=== PATIENT | male | born 1975 | race Hispanic/Latino ===

== ENCOUNTER 2018-05-23 21:54 | Emergency (ER) | payer SELFPAY ==
[2018-05-23] MEDS ORDERED: NA CHLORIDE 0.9% 1,000 ML ONE (22:22)
[2018-05-23 22:37] LABS: Absolute Lymphocytes (CBC) 4.6 K/uL (0.7-4.9); Absolute Monocytes 0.7 K/uL (0.1-1.3); Absolute Neutrophil 7.2 K/uL (1.8-8.0); Basophils % 0.7 % (0-1.3); Eosinophils % 1.9 % (0-4.4); Hematocrit 45.9 % (39.6-49.0); Lymphocytes % 35.8 % (15.3-44.8); MCH 28.9 pg (27.0-35.0); MCV 84.2 fL (80-100); MPV 10.3 fL (7.6-11.3); Monocytes % 5.3 % (3.3-12.3); RBC Red Blood Cell Count 5.44 M/uL (4.33-5.43)
[2018-05-23 22:55] LABS: BUN Blood Urea Nitrogen 11 mg/dL (7-18); Bicarbonate 29 mmol/L (21-32); Creatine Phosphokinase 76 U/L (39-308); Glucose Level 398 mg/dL (74-106); Potassium 3.9 mmol/L (3.5-5.1); Sodium Level 134 mmol/L (136-145); Troponin (Emerg Dept Use Only) < 0.02 ng/mL (0.0-0.045)
[2018-05-24] MEDS ORDERED: NA CHLORIDE 0.9% 1,000 ML ONE (00:04)
[2018-05-24 01:16] LABS: Urine Blood NEGATIVE (NEG); Urine Glucose 2+ (NEG); Urine Protein NEGATIVE (NEG); Urine pH 5.5 (5.0-7.0)
[2018-05-24 01:24] LABS: Urine Bacteria <20 /HPF (NONE SEEN); Urine Culture Reflex Order NOT NEEDED; Urine RBC NONE SEEN /HPF (NONE SEEN); Urine Yeast PRESENT (NONE SEEN)
--- NOTE | 2018-05-24 01:25 | EDPHYS ---
Physician Documentation [facility] Name: Clayton Guzman Age: 42 yrs Sex: Male : 1975 Arrival Date: 05/23/2018 Time: 21:56 Bed 19 Private MD: ED Physician Suresh Roque HPI: 05/24 01:04 This 42 yrs old Male presents to ER via Ambulatory with complaints of Blurred rn Vision, Dizziness, Numbness Of Arm. 01:04 The patient presents with dizziness, feeling faint, generalized weakness. Onset: The rn symptoms/episode began/occurred few months. Modifying factors: The symptoms are alleviated by nothing, the symptoms are aggravated by nothing. Severity of symptoms: At their worst the symptoms were mild in the emergency department the symptoms have improved. The patient has experienced similar episodes in the past. Reports several months of intermittent fatigue, dizziness, paresthesias of left arm. Reports usually "able to shake them off", goes away after a while, but today hit him harder. Works in kitchen, always hot, doesn't drink water, drinks a lot of soda. No chest pain/vomiting/diarrhea/abd pain. Reports weakness all over. States symptoms got worse around 5PM.. Historical: - Allergies: 05/23 22:09 No Known Allergies; bb - Home Meds: 22:09 None [Active]; bb - PMHx: 22:09 None; bb - PSHx: 22:09 None; bb - Immunization history:: Adult Immunizations unknown. - Social history:: Smoking status: Patient/guardian denies using tobacco, Patient uses alcohol, but reports only rare drinking. Patient/guardian denies using street drugs. - Ebola Screening: : No symptoms or risks identified at this time. - Family history:: not pertinent. - Hospitalizations: : No recent hospitalization is reported. ROS: 05/24 01:04 Constitutional: Negative for fever, chills, and weight loss, Eyes: Negative for injury, rn pain, redness, and discharge, Neck: Negative for injury, pain, and swelling, Cardiovascular: Negative for chest pain, palpitations, and edema, Respiratory: Negative for shortness of breath, cough, wheezing, and pleuritic chest pain, Abdomen/GI: Negative for abdominal pain, nausea, vomiting, diarrhea, and constipation, MS/Extremity: Negative for injury and deformity, Skin: Negative for injury, rash, and discoloration, Neuro: Negative for seizure Exam: 01:04 Constitutional: This is a well developed, well nourished patient who is awake, slow to rn respond to answers, appears drowsy but anxious Head/Face: Normocephalic, atraumatic. Eyes: Pupils equal round and reactive to light, extra-ocular motions intact. Lids and lashes normal. Conjunctiva and sclera are non-icteric and not injected. Cornea within normal limits. Periorbital areas with no swelling, redness, or edema. ENT: dry MM Neck: Trachea midline, no thyromegaly or masses palpated, and no cervical lymphadenopathy. Supple, full range of motion without nuchal rigidity, or vertebral point tenderness. No Meningismus. Cardiovascular: Regular rate and rhythm with a normal S1 and S2. No gallops, murmurs, or rubs. Normal PMI, no JVD. No pulse deficits. Respiratory: Lungs have equal breath sounds bilaterally, clear to auscultation and percussion. No rales, rhonchi or wheezes noted. No increased work of breathing, no retractions or nasal flaring. Abdomen/GI: Soft, non-tender, with normal bowel sounds. No distension or tympany. No guarding or rebound. No evidence of tenderness throughout. MS/ Extremity: Pulses equal, no cyanosis. Neurovascular intact. Full, normal range of motion. Equal circumference. Neuro: Awake and alert, GCS 15, oriented to person, place, time, and situation. Cranial nerves II-XII grossly intact. Motor strength 5/5 in all extremities, no drift. Mild decreased sensation to soft touch LUE but only distal ot elbow. Cerebellar exam normal. Vital Signs: 05/23 22:09 BP 157 / 97; Pulse 89; Resp 24 S; Temp 98.1(O); Pulse Ox 97% on R/A; Weight 92.99 kg bb (R); Height 5 ft. 2 in. (157.48 cm) (R); Pain 0/10; 23:22 BP 131 / 94; Pulse 86; Resp 18; Temp 98.1; Pulse Ox 97% on R/A; Pain 0/10; ak1 05/24 00:37 BP 120 / 81; Pulse 83; Resp 16; Pulse Ox 97% on R/A; Pain 0/10; ak1 01:27 BP 137 / 86; Pulse 83; Resp 16; Pulse Ox 97% on R/A; Pain 0/10; ak1 05/23 22:09 Body Mass Index 37.49 (92.99 kg, 157.48 cm) bb MDM: 05/23 22:03 Patient medically screened. rn 22:22 ED course: Onset of symptoms 1700, + left arm paresthesias and subjective weakness, no rn drift, NIH 1. Signs and symptoms of hyperglycemia/diabetes, has had multiple of these episodes, no drift, will get CT of head, but given unclear etiology and onset now > 5 hours, no indication for TPA. . 05/24 00:23 ED course: Pt improved with only fluids, still waiting on urine sample. CT head neg. . rn 01:20 Differential diagnosis: CVA, generalized weakness, hypovolemia, idiopathic dizziness, rn near-syncope, TIA. Data reviewed: vital signs, nurses notes, lab test result(s), EKG, radiologic studies, CT scan, and as a result, I will discharge patient. Counseling: I had a detailed discussion with the patient and/or guardian regarding: the historical points, exam findings, and any diagnostic results supporting the discharge/admit diagnosis, lab results, radiology results, the need for outpatient follow up, to return to the emergency department if symptoms worsen or persist or if there are any questions or concerns that arise at home. Response to treatment: the patient's condition has returned to base line, the patient is now symptom free, patient is well hydrated. and as a result, I will discharge patient. Special discussion: I discussed with the patient/guardian in detail that at this point there is no indication for admission to the hospital. It is understood, however, that if the symptoms persist or worsen the patient needs to return immediately for re-evaluation. Based on the history and exam findings, there is no indication for further emergent testing or inpatient evaluation. I discussed with the patient/guardian the need to see the primary care provider for further evaluation of the symptoms. ED course: Pt with hyperglycemia, dehydration, improved symptoms once fluids started. Recommend better diet and oral hydration, and pcp f/u for glucose management and true diabetic evaluation/diagnosis. Return precautions given and understood. . 05/23 22:22 Order name: CBC with Diff; Complete Time: 23:51 rn 05/23 22:22 Order name: Basic Metabolic Panel; Complete Time: 23:51 rn 05/23 22:22 Order name: Urine Microscopic Only; Complete Time: 01:25 rn 05/23 22:22 Order name: Osmolality, Serum; Complete Time: 23:51 rn 05/23 22:22 Order name: Ketone, Serum; Complete Time: 23:51 rn 05/23 22:22 Order name: Troponin (emerg Dept Use Only); Complete Time: 23:51 rn 05/23 22:20 Order name: CT Head Brain wo Cont rn 05/23 22:22 Order name: Hemoglobin A1c rn 05/23 22:22 Order name: CK; Complete Time: 23:51 rn 05/24 00:06 Order name: Urine Drug Screen ak1 05/24 00:57 Order name: Urine Dipstick--Ancillary (enter results); Complete Time: 01:20 mw2 05/23 22:22 Order name: IV Start; Complete Time: 22:23 rn 05/23 22:22 Order name: Urine Dipstick-Ancillary (obtain specimen); Complete Time: 00:56 rn 05/23 22:22 Order name: EKG; Complete Time: 22:23 rn 05/23 22:22 Order name: EKG - Nurse/Tech; Complete Time: 22:45 rn Administered Medications: 05/23 22:20 Drug: NS 0.9% 1000 ml Route: IV; Rate: 1 bolus; Site: right antecubital; ak1 23:21 Follow up: IV Status: Completed infusion ak1 05/24 00:07 Follow up: IV Status: Completed infusion ak1 05/23 22:22 CANCELLED (Duplicate Order): NS 0.9% 1000 ml IV at 1000 ml once ak1 05/24 00:07 Drug: NS 0.9% 1000 ml Route: IV; Rate: 1 bolus; Site: right antecubital; ak1 01:02 Follow up: IV Status: Completed infusion ak1 01:04 Follow up: IV Status: Completed infusion ak1 Point of Care Testing: Blood Glucose: 05/23 22:11 Blood Glucose: 344 mg/dL; ak1 Ranges: Critical Glucose Levels:Adult <50 mg/dl or >400 mg/dl <40 mg/dl or >180 mg/dl Disposition: 05/24/18 01:24 Discharged to Home. Impression: Paresthesia of skin, Hyperglycemia, unspecified, Dehydration. - Condition is Stable. - Discharge Instructions: Dehydration, Adult, Hyperglycemia, Paresthesia. - Medication Reconciliation Form, Thank You Letter, Antibiotic Education, Prescription Opioid Use form. - Follow up: Private Physician; When: As needed; Reason: Recheck today's complaints, Re-evaluation by your physician. - Problem is new. - Symptoms have improved. Signatures: Dispatcher [employer] EDMary Pereyra RN RN bb Nieto, Roman, MD MD rn Krenek, Amber, RN RN ak1 Corrections: (The following items were deleted from the chart) 22:22 22:22 NS 0.9% 1000 ml IV at 1000 ml once ordered. rn ak1 05/24 01:34 01:24 05/24/2018 01:24 Discharged to Home. Impression: Paresthesia of skin; ak1 Hyperglycemia, unspecified; Dehydration. Condition is Stable. Forms are Medication Reconciliation Form, Thank You Letter, Antibiotic Education, Prescription Opioid Use. Follow up: Private Physician; When: As needed; Reason: Recheck today's complaints, Re-evaluation by your physician. Problem is new. Symptoms have improved. rn
--- NOTE | 2018-05-24 01:25 | ER ---
Nurse's Notes [facility] Name: Clayton Guzman Age: 42 yrs Sex: Male : 1975 Arrival Date: 05/23/2018 Time: 21:56 Bed 19 Private MD: Diagnosis: Paresthesia of skin;Hyperglycemia, unspecified;Dehydration Presentation: 05/23 22:07 Presenting complaint: Patient states: he was lying down today and woke up to urinate bb when he noticed a "pins and needle" feeling in his left arm with some left arm pain he was feeling dizzy and his vision was blurred those symptoms have been intermittent throughout the day but they are still there pt states he has been having these symptoms the last couple of months but he usually will rest and "shake them off". Transition of care: patient was not received from another setting of care. Onset of symptoms is unknown. Risk Assessment: Do you want to hurt yourself or someone else? Patient reports no desire to harm self or others. Initial Sepsis Screen: Does the patient meet any 2 criteria? No. Patient's initial sepsis screen is negative. Does the patient have a suspected source of infection? No. Patient's initial sepsis screen is negative. Care prior to arrival: None. 22:07 Method Of Arrival: Ambulatory bb 22:07 Acuity: KAREN 3 bb Triage Assessment: 22:12 General: Appears in no apparent distress. Behavior is cooperative. Pain: Complains of ak1 pain in left hand, left arm and left leg. EENT: No signs and/or symptoms were reported regarding the EENT system. Neuro: Level of Consciousness is awake, alert, obeys commands, Oriented to person, place, time, situation, Label Maker are equal bilaterally Moves all extremities. Gait is steady, Speech is normal, Facial symmetry appears normal. Cardiovascular: No deficits noted. Respiratory: No deficits noted. GI: No signs and/or symptoms were reported involving the gastrointestinal system. : No signs and/or symptoms were reported regarding the genitourinary system. Derm: No signs and/or symptoms reported regarding the dermatologic system. Musculoskeletal: No signs and/or symptoms reported regarding the musculoskeletal system. Historical: - Allergies: 22:09 No Known Allergies; bb - Home Meds: 22: None [Active]; bb - PMHx: 22: None; bb - PSHx: 22:09 None; bb - Immunization history:: Adult Immunizations unknown. - Social history:: Smoking status: Patient/guardian denies using tobacco, Patient uses alcohol, but reports only rare drinking. Patient/guardian denies using street drugs. - Ebola Screening: : No symptoms or risks identified at this time. - Family history:: not pertinent. - Hospitalizations: : No recent hospitalization is reported. Screenin:12 Abuse screen: Denies threats or abuse. Denies injuries from another. Nutritional ak1 screening: No deficits noted. Tuberculosis screening: No symptoms or risk factors identified. Fall Risk None identified. Assessment: 22:13 Reassessment: Patient appears in no apparent distress at this time. No changes from ak1 previously documented assessment. see triage assessment. General: Appears in no apparent distress. 23:22 Reassessment: Patient appears in no apparent distress at this time. No changes from ak1 previously documented assessment. Patient is alert, oriented x 3, equal unlabored respirations, skin warm/dry/pink. pt informed of need for urine sample. 05/24 00:34 Reassessment: pt laughing and talking with family at bedside. pt appears more alert and ak1 cooperative at this time s/p 2 liter NS. pt continues to be informed of need for urine sample. will continue to monitor. 01:00 Reassessment: Patient appears in no apparent distress at this time. pt texting family ak1 and waiting for lab results. pt denies pain to left arm at this time. Vital Signs: 05/23 22:09 BP 157 / 97; Pulse 89; Resp 24 S; Temp 98.1(O); Pulse Ox 97% on R/A; Weight 92.99 kg bb (R); Height 5 ft. 2 in. (157.48 cm) (R); Pain 0/10; 23:22 BP 131 / 94; Pulse 86; Resp 18; Temp 98.1; Pulse Ox 97% on R/A; Pain 0/10; ak1 05/24 00:37 BP 120 / 81; Pulse 83; Resp 16; Pulse Ox 97% on R/A; Pain 0/10; ak1 01:27 BP 137 / 86; Pulse 83; Resp 16; Pulse Ox 97% on R/A; Pain 0/10; ak1 05/23 22:09 Body Mass Index 37.49 (92.99 kg, 157.48 cm) bb ED Course: 05/23 21:56 Patient arrived in ED. do 21:59 Jossie Sheth, RN is Primary Nurse. ak1 22:03 Suresh Roque MD is Attending Physician. rn 22:09 Triage completed. bb 22:09 Arm band placed on Patient placed in an exam room, on a stretcher, on pulse oximetry. bb Family accompanied patient. 22:11 Inserted saline lock: 20 gauge in right antecubital area, using aseptic technique. ak1 Blood collected. 22:12 Patient has correct armband on for positive identification. Placed in gown. Bed in low ak1 position. Call light in reach. Side rails up X2. Adult w/ patient. potline monitor on. Pulse ox on. NIBP on. 22:[address] nm 22:39 CT Head Brain wo Cont In Process Unspecified. EDMS 22:39 CT completed. Patient moved back from CT. cw1 05/24 01:30 No provider procedures requiring assistance completed. IV discontinued, intact, ak1 bleeding controlled, No redness/swelling at site. Pressure dressing applied. Administered Medications: 05/23 22:20 Drug: NS 0.9% 1000 ml Route: IV; Rate: 1 bolus; Site: right antecubital; ak1 23:21 Follow up: IV Status: Completed infusion ak1 05/24 00:07 Follow up: IV Status: Completed infusion ak1 05/23 22:22 CANCELLED (Duplicate Order): NS 0.9% 1000 ml IV at 1000 ml once ak1 05/24 00:07 Drug: NS 0.9% 1000 ml Route: IV; Rate: 1 bolus; Site: right antecubital; ak1 01:02 Follow up: IV Status: Completed infusion ak1 01:04 Follow up: IV Status: Completed infusion ak1 Point of Care Testing: Blood Glucose: 05/23 22:11 Blood Glucose: 344 mg/dL; ak1 Ranges: Outcome: 05/24 01:24 Discharge ordered by . rn 01:30 Discharged to home ambulatory, with family. ak1 01:30 Condition: good 01:30 Discharge instructions given to patient, family, Instructed on discharge instructions, follow up and referral plans. Demonstrated understanding of instructions, follow-up care. 01:34 Patient left the ED. ak1 Signatures: Dispatcher [employer] Mary Burch RN RN Suresh Baltazar MD MD rn Woodley, Cher [email or web address] Jossie Sheth RN RN ak1 Shyla Murdock, Dorian mosher
[2018-05-24 01:26] LABS: Barbiturates NEGATIVE (NEGATIVE); Benzodiazepines NEGATIVE (NEGATIVE); Cocaine NEGATIVE (NEGATIVE); METHAMPHETAM NEGATIVE (NEGATIVE); Methadone NEGATIVE (NEGATIVE); Opiates NEGATIVE (NEGATIVE); Phencyclidine NEGATIVE (NEGATIVE); THC Cannibis NEGATIVE (NEGATIVE)
--- NOTE | 2018-05-24 09:14 | RAD REPORT ---
EXAM DESCRIPTION: CT - Head Brain Wo Cont - 05/24/2018 3:57 am CLINICAL HISTORY: Headache, left arm paresthesia A preliminary report was provided at the time of the study and reviewed prior to final report. COMPARISON: None. TECHNIQUE: Axial 5 mm thick images of the head were obtained without IV contrast. All CT scans are performed using dose optimization technique as appropriate and may include automated exposure control or mA/KV adjustment according to patient size. FINDINGS: No intracranial hemorrhage, mass, edema or shift of mid-line structures. No acute infarcti on changes seen. No abnormal extra-axial fluid collections. Ventricles are normal. Mastoid air cells and visualized portions of the paranasal sinuses are clear of significant finding. Small polyps or retention cysts in each maxillary sinus. No acute bony findings. IMPRESSION: Negative non-contrast CT head examination for acute or significant finding.
--- NOTE | 2018-05-24 17:34 | EKG ---
Test Date: 2018-05-23 Test Time: 22:42:07 Sales Leader: LAURA MEASUREMENT RESULTS: Intervals: Rate: 90 CT: 148 QRSD: 94 QT: 360 QTc: 440 [place]: P: 60 CT: 148 QRS: 25 T: 30 INTERPRETIVE STATEMENTS: Sinus rhythm with occasional premature ventricular complexes Otherwise normal ECG Compared to ECG 09/20/2005 18:39:00 No significant changes Electronically Signed On 05-24-18 17:33:25 CDT by Kit Kennedy
== END 2018-05-24 01:34 | disposition home or self-care (01) ==
LOC: EDBD 21:54 → ER 21:54
DX: E86.0 Dehydration (principal); R73.9 Hyperglycemia, unspecified
CPT/HCPCS: 36415; 70450; 80048; 80307; 81003; 81015; 82010; 82550; 82962; 83930; 84484; 85025; 93005; 96360; 96361; 99285; J7030

== ENCOUNTER 2018-11-02 09:43 | Observation (INO) | payer SELFPAY ==
[2018-11-02 10:17] LABS: Absolute Lymphocytes (CBC) 3.5 K/uL (0.7-4.9); Absolute Monocytes 0.5 K/uL (0.1-1.3); Absolute Neutrophil 6.2 K/uL (1.8-8.0); Basophils % 0.5 % (0-1.3); Eosinophils % 1.2 % (0-4.4); Lymphocytes % 33.8 % (15.3-44.8); MPV 9.4 fL (7.6-11.3); Monocytes % 4.6 % (3.3-12.3); RBC Red Blood Cell Count 5.84 M/uL (4.33-5.43)
[2018-11-02 10:21] LABS: Protime INR 1.05
--- NOTE | 2018-11-02 10:21 | RAD REPORT ---
EXAM DESCRIPTION: CT - Ct Stroke Brain Wo Cont - 11/02/2018 10:05 am CLINICAL HISTORY: Alteration of awareness. Unresponsive COMPARISON: May 2018 TECHNIQUE: Computed axial tomography of the head was obtained. IV contrast was not requested. All CT scans are performed using dose optimization technique as appropriate and may include automated exposure control or mA/KV adjustment according to patient size. FINDINGS: An intracranial bleed is not seen . The ventricles are normal in caliber. No extra-axial fluid collection is noted. Partial opacification of maxillary and ethmoid sinuses consistent with sinusitis IMPRESSION: No acute intracranial abnormality is seen. If patient's symptoms persist MRI of the bra in would be recommended. Lashell Villegas of the emergency room notified 9:57 a.m. November 12, 2018
--- NOTE | 2018-11-02 10:23 | RAD REPORT ---
EXAM DESCRIPTION: RAD - Chest Single View - 11/02/2018 10:11 am CLINICAL HISTORY: COUGH Chest pain. COMPARISON: No comparisons FINDINGS: Portable technique limits examination quality. The lungs are underinflated resulting in vascular crowding. The heart is normal in size. No displaced fractures. IMPRESSION: Underinflated lungs.
[2018-11-02] MEDS ORDERED: THIAMINE 200 MG/2 ML INJ ONE (10:26)
[2018-11-02] MEDS ORDERED: NA CHLORIDE 0.9% 1,000 ML ONE (10:26)
[2018-11-02] MEDS ORDERED: FOLIC ACID 5 MG/ML VIAL ONE (10:27)
[2018-11-02 10:33] LABS: Blood Gas Oxyhemoglobin 94.8 % (94-97); Blood O2 Saturation 96.6 % (92-98.5)
[2018-11-02 10:34] LABS: ALT/SGPT 37 U/L (12-78); AST/SGOT 17 U/L (15-37); Albumin 4.1 g/dL (3.4-5.0); Alkaline Phosphatase 79 U/L (45-117); BUN Blood Urea Nitrogen 12 mg/dL (7-18); Bicarbonate 29 mmol/L (21-32); Bilirubin Direct 0.1 mg/dL (0-0.2); Bilirubin Total 0.5 mg/dL (0.2-1.0); Glucose Level 160 mg/dL (74-106); Lipase 116 U/L (73-393); Magnesium 2.2 mg/dL (1.8-2.4); NT PRO-BNP 6 pg/mL (<125); Potassium 3.9 mmol/L (3.5-5.1); Protein, Total 8.5 g/dL (6.4-8.2); Sodium Level 138 mmol/L (136-145); Troponin (Emerg Dept Use Only) < 0.02 ng/mL (0.0-0.045)
--- NOTE | 2018-11-02 11:15 | EDPHYS ---
Physician Documentation [facility] Name: Clayton Guzman Age: 42 yrs Sex: Male : 1975 Arrival Date: 11/02/2018 Time: 09:50 Bed 7 Private MD: ED Physician Vasyl Thomson HPI: 11/02 10:13 This 42 yrs old Male presents to ER via Wheelchair with complaints of timothy Unresponsive. 10:13 The patient presents with confusion, decreased mental status, decreased responsiveness, timothy trouble concentrating. Onset: The symptoms/episode began/occurred just prior to arrival. Possible causes: CVA or TIA, drug use, alcohol, unknown. Associated signs and symptoms: The patient has no apparent associated signs or symptoms. Current symptoms: In the emergency department the patient's symptoms are unchanged from the initial presentation. Patient's baseline: Neuro: alert and fully oriented. Historical: - Allergies: 09:58 No Known Allergies; sv - Immunization history:: Adult Immunizations unknown. - Family history:: not pertinent. - Social history:: Smoking status: unknown. - Ebola Screening: : No symptoms or risks identified at this time. ROS: 10:13 Constitutional: Negative for fever, chills, and weight loss, Eyes: Negative for injury, timothy pain, redness, and discharge, ENT: Negative for injury, pain, and discharge, Neck: Negative for injury, pain, and swelling, Cardiovascular: Negative for chest pain, palpitations, and edema, Respiratory: Negative for shortness of breath, cough, wheezing, and pleuritic chest pain, Abdomen/GI: Negative for abdominal pain, nausea, vomiting, diarrhea, and constipation, Back: Negative for injury and pain, : Negative for injury, bleeding, discharge, and swelling, MS/Extremity: Negative for injury and deformity, Skin: Negative for injury, rash, and discoloration, Psych: Negative for depression, anxiety, suicide ideation, homicidal ideation, and hallucinations, Allergy/Immunology: Negative for hives, rash, and allergies, Endocrine: Negative for neck swelling, polydipsia, polyuria, polyphagia, and marked weight changes, Hematologic/Lymphatic: Negative for swollen nodes, abnormal bleeding, and unusual bruising. 10:13 Neuro: Positive for altered mental status, weakness. Exam: 10:13 Constitutional: This is a well developed, well nourished patient who is awake, alert, timothy and in no acute distress. Head/Face: Normocephalic, atraumatic. Eyes: Pupils equal round and reactive to light, extra-ocular motions intact. Lids and lashes normal. Conjunctiva and sclera are non-icteric and not injected. Cornea within normal limits. Periorbital areas with no swelling, redness, or edema. ENT: Nares patent. No nasal discharge, no septal abnormalities noted. Tympanic membranes are normal and external auditory canals are clear. Oropharynx with no redness, swelling, or masses, exudates, or evidence of obstruction, uvula midline. Mucous membranes moist. Neck: Trachea midline, no thyromegaly or masses palpated, and no cervical lymphadenopathy. Supple, full range of motion without nuchal rigidity, or vertebral point tenderness. No Meningismus. Chest/axilla: Normal chest wall appearance and motion. Nontender with no deformity. No lesions are appreciated. Cardiovascular: Regular rate and rhythm with a normal S1 and S2. No gallops, murmurs, or rubs. Normal PMI, no JVD. No pulse deficits. Respiratory: Lungs have equal breath sounds bilaterally, clear to auscultation and percussion. No rales, rhonchi or wheezes noted. No increased work of breathing, no retractions or nasal flaring. Abdomen/GI: Soft, non-tender, with normal bowel sounds. No distension or tympany. No guarding or rebound. No evidence of tenderness throughout. Back: No spinal tenderness. No costovertebral tenderness. Full range of motion. Male : Normal genitalia with no discharge or lesions. Skin: Warm, dry with normal turgor. Normal color with no rashes, no lesions, and no evidence of cellulitis. MS/ Extremity: Pulses equal, no cyanosis. Neurovascular intact. Full, normal range of motion. Psych: Awake, alert, with orientation to person, place and time. Behavior, mood, and affect are within normal limits. 10:13 Neuro: Orientation: unable to test, Mentation: slow to respond, confused, Memory: unable to test, Cranial nerves: no acute changes, Cerebellar function: is grossly normal, is grossly normal based on the patient's age, Motor: is normal, Sensation: is normal, no obvious gross deficits, Gait: not tested. Deep tendon reflexes are 2+ (normal) in the bilateral brachioradialis, bicep, tricep and patellar and Achilles tendons, Babinski testing is normal, seizure activity. 10:49 Neck: ROM/movement: is normal, no acute changes, Meningeal signs: are not present, timothy Kernig's sign is negative, Brudzinski's sign is negative. 11:17 Musculoskeletal/extremity: DVT Exam: No signs of deep vein thrombosis. no pain, no timothy swelling, no tenderness, negative Homans' sign noted on exam, no appreciated bluish discoloration, no erythema, no increased warmth. Vital Signs: 09:51 BP 149 / 102; Pulse 82; Resp 26; Pulse Ox 100% on R/A; sg 09:55 Temp 96.0(TE); ss 10:30 BP 141 / 90; Pulse 73; Resp 16; Pulse Ox 90% on R/A; hb 11:30 BP 135 / 72; Pulse 78; Resp 15; Pulse Ox 100% on R/A; hb 12:30 BP 128 / 89; Pulse 73; Resp 19; Pulse Ox 98% on R/A; hb 13:30 BP 111 / 72; Pulse 67; Resp 15; Pulse Ox 99% on R/A; hb 14:30 BP 118 / 81; Pulse 75; Resp 15; Pulse Ox 100% on R/A; hb 15:30 BP 128 / 85; Pulse 72; Resp 21; Pulse Ox 98% on R/A; hb 16:30 BP 118 / 83; Pulse 72; Resp 16; Temp 98.1; Pulse Ox 100% on R/A; hb MDM: 09:54 Patient medically screened. [facility] 10:17 Data reviewed: vital signs, nurses notes, lab test result(s), EKG, radiologic studies, [facility] CT scan, plain films. 11/02 09:58 Order name: Basic Metabolic Panel; Complete Time: 11:11 [facility] 11/02 09:58 Order name: CBC with Diff; Complete Time: 11:11 [facility] 11/02 09:58 Order name: LFT's; Complete Time: 11:11 [facility] 11/02 09:58 Order name: Magnesium; Complete Time: 11:11 [facility] 11/02 09:58 Order name: NT PRO-BNP; Complete Time: 11:11 [facility] 11/02 09:58 Order name: PT-INR; Complete Time: 11:11 [facility] 11/02 09:58 Order name: Troponin (emerg Dept Use Only); Complete Time: 11:11 [facility] 11/02 09:58 Order name: Acetaminophen; Complete Time: 11:11 [facility] 11/02 09:58 Order name: ETOH Level; Complete Time: 11:11 [facility] 11/02 09:58 Order name: Ptt, Activated; Complete Time: 11:11 [facility] 11/02 09:58 Order name: Salicylate; Complete Time: 11:11 [facility] 11/02 09:58 Order name: Urine Drug Screen [facility] 11/02 09:58 Order name: Lipase; Complete Time: 11:11 [facility] 11/02 09:59 Order name: ABG; Complete Time: 11:11 [facility] 11/02 09:58 Order name: XRAY Chest (1 view); Complete Time: 11:11 [facility] 11/02 09:58 Order name: CT Stroke Brain w/o Contrast; Complete Time: 11:11 [facility] 11/02 10:12 Order name: Glucose, Ancillary Testing; Complete Time: 10:19 [facility] 11/02 10:13 Order name: Glucose, Ancillary Testing [facility] 11/02 10:19 Order name: Blood Culture Adult (2) [facility] 11/02 10:19 Order name: Procalcitonin; Complete Time: 11:47 [facility] 11/02 10:19 Order name: Lactate; Complete Time: 11:11 [facility] 11/02 10:49 Order name: Flu; Complete Time: 11:17 [facility] 11/02 11:37 Order name: Urine Dipstick--Ancillary (enter results) em1 11/02 18:09 Order name: Creatine Phosphokinase [facility] 11/02 18:09 Order name: CKMB Creatine Kinase MB [facility] 11/02 18:09 Order name: Troponin I [facility] 11/02 18:09 Order name: T4 Free [facility] 11/02 18:09 Order name: Thyroid Stimulating Hormone [facility] 11/02 19:00 Order name: MRI [facility] 11/02 19:02 Order name: MRI [facility] 11/02 09:58 Order name: EKG; Complete Time: 10:00 [facility] 11/02 09:58 Order name: Cardiac monitoring; Complete Time: 10:24 [facility] 11/02 09:58 Order name: EKG - Nurse/Tech; Complete Time: 10:24 [facility] 11/02 09:58 Order name: IV Saline Lock; Complete Time: 10:24 [facility] 11/02 09:58 Order name: Labs collected and sent; Complete Time: 10:24 [facility] 11/02 09:58 Order name: O2 Per Protocol; Complete Time: 10:47 [facility] 11/02 09:58 Order name: O2 Sat Monitoring; Complete Time: 10:47 [facility] 11/02 09:58 Order name: Urine Dipstick-Ancillary (obtain specimen); Complete Time: 11:35 [facility] 11/02 09:59 Order name: Blood Glucose Level; Complete Time: 10:10 [facility] 11/02 13:54 Order name: Diet Ada 1800 Bowen; Complete Time: 13:54 ss 11/02 19:08 Order name: MRI EDMS 11/02 19:08 Order name: US EDMS Administered Medications: 10:23 Drug: Thiamine 100 mg Route: IV; Rate: bolus; Site: right antecubital; hb 11:29 Follow up: Response: No adverse reaction; IV Status: Completed infusion hb 10:23 Drug: foLIC Acid 1 mg Route: IVPB; Site: right antecubital; hb 11:29 Follow up: Response: No adverse reaction; IV Status: Completed infusion hb 10:24 Drug: NS 0.9% 1000 ml Route: IV; Rate: 1 bolus; Site: right antecubital; hb 11:15 Follow up: Response: No adverse reaction; IV Status: Completed infusion hb 11:11 Drug: Rocephin - (cefTRIAXone) 1 grams Route: IVPB; Infused Over: 30 mins; Site: right hb antecubital; 11:55 Follow up: Response: No adverse reaction; IV Status: Completed infusion hb 11:20 Drug: Aspirin 162 mg Route: PO; hb 12:05 Follow up: Response: No adverse reaction hb 13:00 Drug: Tamiflu 75 mg Route: PO; hb 14:00 Follow up: Response: No adverse reaction hb Point of Care Testing: Blood Glucose: 09:49 Blood Glucose: 158 mg/dL; sv Ranges: Critical Glucose Levels:Adult <50 mg/dl or >400 mg/dl <40 mg/dl or >180 mg/dl Disposition: 11/02/18 11:14 Hospitalization ordered by Dena Mata for Observation. Preliminary diagnosis are Weakness, Chest pain, unspecified, Altered mental status, unspecified, Influenza due to other identified influenza virus - Flu B. - Bed requested for Telemetry/MedSurg (observation). - Status is Observation. lp1 - Condition is Stable. - Problem is new. - Symptoms have improved. UTI on Admission? No Signatures: Dispatcher [employer] EDCheyenne Mcclain, RN Savi Alfonso RN Vasyl Olmstead MD MD cha Smirch, Shelby, RN RN ss Meghan Ricketts RN RN lp1 Batsheva Mathews RN RN Corrections: (The following items were deleted from the chart) 11:18 11:14 Hospitalization Ordered by Dena Mata MD for Observation. Preliminary diagnosis timothy is Weakness; Chest pain, unspecified; Altered mental status, unspecified. Bed requested for Telemetry/MedSurg (observation). Status is Observation. Condition is Stable. Problem is new. Symptoms have improved. UTI on Admission? No. timothy 16:39 11:18 11/02/2018 11:14 Hospitalization Ordered by Dena Mata MD for Observation. ss Preliminary diagnosis is Weakness; Chest pain, unspecified; Altered mental status, unspecified; Influenza due to other identified influenza virus - Flu B. Bed requested for Telemetry/MedSurg (observation). Status is Observation. Condition is Stable. Problem is new. Symptoms have improved. UTI on Admission? No. timothy 18:11 16:39 11/02/2018 11:14 Hospitalization Ordered by Dena Mata MD for Observation. dw Preliminary diagnosis is Weakness; Chest pain, unspecified; Altered mental status, unspecified; Influenza due to other identified influenza virus - Flu B. Bed requested for [facility] ER HOLD. Status is Observation. Condition is Stable. Problem is new. Symptoms have improved. UTI on Admission? No. ss 18:12 18:11 11/02/2018 11:14 Hospitalization Ordered by Dena aMta MD for Observation. dw Preliminary diagnosis is Weakness; Chest pain, unspecified; Altered mental status, unspecified; Influenza due to other identified influenza virus - Flu B. Bed requested for Telemetry/MedSurg (observation). Status is Observation. Condition is Stable. Problem is new. Symptoms have improved. UTI on Admission? No. dw 18:15 18:12 11/02/2018 11:14 Hospitalization Ordered by Dena Mata MD for Observation. dw Preliminary diagnosis is Weakness; Chest pain, unspecified; Altered mental status, unspecified; Influenza due to other identified influenza virus - Flu B. Bed requested for Telemetry/MedSurg (observation). Status is Observation. Condition is Stable. Problem is new. Symptoms have improved. UTI on Admission? No. dw 19:53 18:15 11/02/2018 11:14 Hospitalization Ordered by Dena Mata MD for Observation. lp1 Preliminary diagnosis is Weakness; Chest pain, unspecified; Altered mental status, unspecified; Influenza due to other identified influenza virus - Flu B. Bed requested for Telemetry/MedSurg (observation). Status is Observation. Condition is Stable. Problem is new. Symptoms have improved. UTI on Admission? No. dw
--- NOTE | 2018-11-02 11:15 | ER ---
Nurse's Notes [facility] Name: Clayton Guzman Age: 42 yrs Sex: Male : 1975 Arrival Date: 11/02/2018 Time: 09:50 Bed 7 Private MD: Diagnosis: Weakness;Chest pain, unspecified;Altered mental status, unspecified;Influenza due to other identified influenza virus-Flu B Presentation: 11/02 09:49 Presenting complaint: Significant other states: stated this morning pt told her that he sv wanted to go see the doctor after having chest pain the last couple of days. Girlfriend stated he started acting like this about 30 mins ago. Pt is not responsive and will not follow commands. Responsive to painful stimuli. Transition of care: patient was not received from another setting of care. Onset of symptoms was November 02, 2018 at 09:30. Care prior to arrival: None. 09:49 Method Of Arrival: Wheelchair sv 09:49 Acuity: KAREN 2 sv 10:15 Initial Sepsis Screen: Does the patient meet any 2 criteria? No. Patient's initial hb sepsis screen is negative. Does the patient have a suspected source of infection? No. Patient's initial sepsis screen is negative. 10:15 Risk Assessment: Do you want to hurt yourself or someone else? Patient reports no hb desire to harm self or others. Historical: - Allergies: 09:58 No Known Allergies; sv - Immunization history:: Adult Immunizations unknown. - Family history:: not pertinent. - Social history:: Smoking status: unknown. - Ebola Screening: : No symptoms or risks identified at this time. Screenin:05 Fall Risk Total Fitzpatrick Fall Scale indicates High Risk Score (45 or more points). Fall hb prevention measures have been instituted. Side Rails Up X 2 Frequent Obs/Assessments Occuring Family Present and informed to notify staff if the need to leave the bedside As available patient and family educated on Fall Prevention Program and Strategies. 10:30 Abuse screen: Denies threats or abuse. Denies injuries from another. Nutritional hb screening: No deficits noted. Tuberculosis screening: No symptoms or risk factors identified. Assessment: 09:49 Reassessment: Code Stroke called. sv 09:55 Reassessment: Back from CT. Dr. Thomson at bedside. Girlfriend at bedside. ss 10:05 General: Appears in no apparent distress. Behavior is flat, quiet. Pain: Denies pain. hb Neuro: Level of Consciousness is lethargic, Oriented to person. Cardiovascular: Heart tones S1 S2 present Capillary refill < 3 seconds Patient's skin is warm and dry. Respiratory: Airway is patent Respiratory effort is even, unlabored, Respiratory pattern is regular, symmetrical, Breath sounds are clear bilaterally. GI: No signs and/or symptoms were reported involving the gastrointestinal system. : No signs and/or symptoms were reported regarding the genitourinary system. EENT: No signs and/or symptoms were reported regarding the EENT system. Derm: Skin is intact, is healthy with good turgor. Musculoskeletal: No signs and/or symptoms reported regarding the musculoskeletal system. 10:58 Neuro: Level of Consciousness is obeys commands, lethargic, Oriented to person, place, hb time, situation, VSS. Girlfriend remains at bedside. Awaiting lab results at this time. . 12:00 Reassessment: Patient appears in no apparent distress at this time. No changes from hb previously documented assessment. Patient and/or family updated on plan of care and expected duration. Pain level reassessed. 13:00 Reassessment: Patient appears in no apparent distress at this time. Patient and/or hb family updated on plan of care and expected duration. Pain level reassessed. Patient is alert, oriented x 3, equal unlabored respirations, skin warm/dry/pink. 14:00 Reassessment: Patient appears in no apparent distress at this time. No changes from hb previously documented assessment. Patient and/or family updated on plan of care and expected duration. Pain level reassessed. Patient is alert, oriented x 3, equal unlabored respirations, skin warm/dry/pink. 15:00 Reassessment: Patient appears in no apparent distress at this time. No changes from hb previously documented assessment. Patient and/or family updated on plan of care and expected duration. Pain level reassessed. Patient is alert, oriented x 3, equal unlabored respirations, skin warm/dry/pink. 16:00 Reassessment: Patient appears in no apparent distress at this time. No changes from hb previously documented assessment. Patient and/or family updated on plan of care and expected duration. Pain level reassessed. Patient is alert, oriented x 3, equal unlabored respirations, skin warm/dry/pink. 16:59 Reassessment: Patient appears in no apparent distress at this time. No changes from hb previously documented assessment. Patient and/or family updated on plan of care and expected duration. Pain level reassessed. Vital Signs: 09:51 BP 149 / 102; Pulse 82; Resp 26; Pulse Ox 100% on R/A; sg 09:55 Temp 96.0(TE); ss 10:30 BP 141 / 90; Pulse 73; Resp 16; Pulse Ox 90% on R/A; hb 11:30 BP 135 / 72; Pulse 78; Resp 15; Pulse Ox 100% on R/A; hb 12:30 BP 128 / 89; Pulse 73; Resp 19; Pulse Ox 98% on R/A; hb 13:30 BP 111 / 72; Pulse 67; Resp 15; Pulse Ox 99% on R/A; hb 14:30 BP 118 / 81; Pulse 75; Resp 15; Pulse Ox 100% on R/A; hb 15:30 BP 128 / 85; Pulse 72; Resp 21; Pulse Ox 98% on R/A; hb 16:30 BP 118 / 83; Pulse 72; Resp 16; Temp 98.1; Pulse Ox 100% on R/A; hb ED Course: 09:50 Patient arrived in ED. mr 09:50 Arm band placed on. sv 09:50 Inserted saline lock: 20 gauge in right antecubital area, using aseptic technique. ss Blood collected. Patient maintains SpO2 saturation greater than 95% on room air. 09:[address] via stretcher. sv 09:54 Vasyl Thomson MD is Attending Physician. timothy 09:55 Patient has correct armband on for positive identification. Placed in gown. Bed in low ss position. Call light in reach. Side rails up X2. fresh work wrapper layer on. Pulse ox on. NIBP on. Warm blanket given. 09:58 Triage completed. sv 10:02 X-ray completed. Portable x-ray completed in exam room. Patient tolerated procedure mh1 well. 10:05 CT Stroke Brain w/o Contrast In Process Unspecified. EDMS 10:06 EKG done, by cardiology technician. reviewed by Vasyl Thomson MD. at1 10:08 XRAY Chest (1 view) In Process Unspecified. EDMS 10:10 Batsheva Mathews, RN is Primary Nurse. hb 11:13 Mata, Poyani, MD is Hospitalizing Provider. timothy 17:00 No provider procedures requiring assistance completed. Patient admitted, IV remains in hb place. 17:17 Patient taken to ultrasound. chidi Administered Medications: 10:23 Drug: Thiamine 100 mg Route: IV; Rate: bolus; Site: right antecubital; hb 11:29 Follow up: Response: No adverse reaction; IV Status: Completed infusion hb 10:23 Drug: foLIC Acid 1 mg Route: IVPB; Site: right antecubital; hb 11:29 Follow up: Response: No adverse reaction; IV Status: Completed infusion hb 10:24 Drug: NS 0.9% 1000 ml Route: IV; Rate: 1 bolus; Site: right antecubital; hb 11:15 Follow up: Response: No adverse reaction; IV Status: Completed infusion hb 11:11 Drug: Rocephin - (cefTRIAXone) 1 grams Route: IVPB; Infused Over: 30 mins; Site: right hb antecubital; 11:55 Follow up: Response: No adverse reaction; IV Status: Completed infusion hb 11:20 Drug: Aspirin 162 mg Route: PO; hb 12:05 Follow up: Response: No adverse reaction hb 13:00 Drug: Tamiflu 75 mg Route: PO; hb 14:00 Follow up: Response: No adverse reaction hb Point of Care Testing: Blood Glucose: 09:49 Blood Glucose: 158 mg/dL; sv Ranges: Outcome: 11:14 Decision to Hospitalize by Provider. timothy 17:00 Admitted to ER Hold. Please see [facility] for further documentation. hb 17:00 Condition: stable 17:00 Instructed on the need for admit, Demonstrated understanding of instructions. 19:53 Patient left the ED. lp1 Signatures: Dispatcher [employer] EDMS Cheyenne Ramirez RN RN sv Gay, Steven, RN RN sg Anderson, Corey, MD MD cha Rivera, Marcie mr JeremieNatalia 1 Kari Santos RN RN ss Pena, Laura, RN RN lp1 Tomasa Ortiz, induction brazer EKG Tat1 Shiva Corona jd, Heather, RN RN hb Corrections: (The following items were deleted from the chart) 17:02 16:30 BP 118 / 83; Pulse 72bpm; Resp 16bpm; Pulse Ox 100% RA; hb hb
[2018-11-02] MEDS ORDERED: CEFTRIAXONE/SWI 1gm 1 GM/10 ML SYR ONE (11:26)
[2018-11-02] MEDS ORDERED: ASPIRIN 81 MG CHEWABLE TABLET ONE (11:26)
[2018-11-02] MEDS ORDERED: ONDANSETRON 4 MG/2 ML VIAL ONE (11:26)
[2018-11-02 12:14] LABS: Barbiturates NEGATIVE (NEGATIVE); Benzodiazepines NEGATIVE (NEGATIVE); Cocaine NEGATIVE (NEGATIVE); METHAMPHETAM NEGATIVE (NEGATIVE); Methadone NEGATIVE (NEGATIVE); Opiates NEGATIVE (NEGATIVE); Phencyclidine NEGATIVE (NEGATIVE); THC Cannibis NEGATIVE (NEGATIVE)
[2018-11-02 12:46] LABS: Urine Blood NEGATIVE (NEG); Urine Glucose NEGATIVE (NEG); Urine Protein NEGATIVE (NEG); Urine pH 6.5 (5.0-7.0)
[2018-11-02] MEDS ORDERED: OSELTAMIVIR 75 MG CAP ONE (13:50)
--- NOTE | 2018-11-02 15:31 | P.HP ---
Certification for Inpatient Patient admitted to: Observation With expected LOS: <2 Midnights Patient will require the following post-hospital care: None Practitioner: I am a practitioner with admitting privileges, knowledge of patient current condition, hospital course, and medical plan of care. Services: Services provided to patient in accordance with Admission requirements found in Title 42 Section 412.3 of the Code of Federal Regulations Patient History Date of Service: 11/02/18 Primary Care Provider: Jeremy Salas NP Reason for admission: ARROYO, Dizziness, CP History of Present Illness: 42-year-old male presented to the emergency room with multiple complaints. This included headaches, dizziness and chest pain. Patient reports symptoms started about 1 week ago. Sick contacts included a girlfriend. Patient has been having increased fatigue, body aches. He did report some blurry vision as well. He came to the ER for further evaluation. In the ER patient evaluated. CBC unremarkable. CMP unremarkable. Cardiac enzymes unremarkable. CT head showed no acute changes. Chest x-ray showed underinflated lungs. Patient was positive for influenza B. Due to his symptoms the patient was admitted for observation. When I saw the patient the ER, he appeared comfortable. He did appear tired. Family at bedside. Patient reports a history of diabetes no longer taking medication. He does report a history of a TIA in the past. He had only takes aspirin 81 mg daily. He does not smoke, drink. Urine drug screen was negative. Home medications list reviewed: Yes - Past Medical/Surgical History Diabetic: Yes -: Diabetes mellitus type 2 -: History of TIA Past Surgical History: Patient denies surgical history Psychosocial/ Personal History: Patient has a girlfriend. He has 3 children. He works at a restaurant - Family History Mother -: Diabetes - Social History Smoking Status: Never smoker Alcohol use: No CD- Drugs: No Caffeine use: No Place of Residence: Home Review of Systems General: Weakness, Malaise, As per HPI Eyes: Unremarkable ENT: Nose Congestion, As per HPI Respiratory: Cough, As per HPI Cardiovascular: Chest Pain, Light Headedness, As per HPI Gastrointestinal: Constipation, As per HPI Genitourinary: Unremarkable Musculoskeletal: As per HPI Integumentary: Unremarkable Neurological: Weakness, As per HPI Lymphatics: Unremarkable Other: Poor oral intake Physical Examination - Physical Exam General: Alert, In no apparent distress, Oriented x3, Cooperative HEENT: Atraumatic, Normocephalic, Other (Some nasal congestion noted. He appears dry), EOMI Neck: Supple, No Thyromegaly Respiratory: Other (Decreased breath sounds bilateral with poor inspiration and expiration) Cardiovascular: Normal pulses, Regular rate/rhythm Gastrointestinal: Normal bowel sounds, Soft and benign, Non-distended, No tenderness, No masses, No rebound, No guarding Musculoskeletal: No contractures, No erythema, No tenderness, No warmth Integumentary: No tenderness/swelling, No erythema, No warmth, No cyanosis Neurological: Normal speech, Normal strength at 5/5 x4 extr, Normal tone, Normal affect - Studies Laboratory Data (last 24 hrs) 11/02/18 09:50: PT 12.4, INR 1.05, APTT 31.8 11/02/18 09:50: WBC 10.4, Hgb 16.2, Hct 48.0, Plt Count 280 11/02/18 09:50: Sodium 138, Potassium 3.9, BUN 12, Creatinine 0.75, Glucose 160 H, Magnesium 2.2, Total Bilirubin 0.5, AST 17, ALT 37, Alkaline Phosphatase 79, Lipase 116 Microbiology Data (last 24 hrs): 11/02/18 10:51 Nasopharnyx Influenza Type A Antigen Screen - Final 11/02/18 10:51 Nasopharnyx Influenza Type B Antigen Screen - Final Assessment and Plan - Plan Impression: Headaches, dizziness with blurry vision and fatigue likely related to influenza B with dehydration Chest pain likely related to above along with likely atelectasis with poor inspiration and expiration Diabetes mellitus type 2 History of TIA Plan: Headaches, dizziness with blurry vision and fatigue likely related to influenza B with dehydration: Patient will be admitted for observation and further evaluation. Will continue with IV fluids. Patient started on Tamiflu. Will provide medication for cough and congestion. Will start DVT prophylaxis- Lovenox. Will obtain stroke protocol MRI, carotid Doppler and echocardiogram due to his history of TIA. Will monitor closely. Encourage oral intake. Will provide incentive spirometer. Will also provide medication for shortness of breath-albuterol. Anticipate improvement over the next 24-48 hr. If significantly improved by tomorrow the patient can be discharged home. Chest pain likely related to above along with likely atelectasis with poor inspiration and expiration: Continue with incentive spirometer. Will recheck chest x-ray tomorrow. Will provide albuterol and Atrovent as needed. Will maintain sats above 90%. Respiratory to monitor. Diabetes mellitus type 2: Will check A1c. Will provide insulin sliding History of TIA: Will start aspirin. Will provide DVT prophylaxis-Lovenox. Will also start Lipitor. Will check fasting lipid panel. Will obtain MRI of brain-stroke protocol, carotid Doppler, and echocardiogram to further evaluate. I will turn the service over to hospitalist-Dr. Mata. Discharge Plan: Home Plan to discharge in: 24 Hours - Advance Directives Does patient have a Living Will: No Does patient have a Durable POA for Healthcare: No - Code Status/Comfort Care Code Status Assessed: Yes Code Status: Full Code Time Spent Managing Pts Care (In Minutes): 55
[2018-11-02] MEDS: INSULIN -REGULAR HUMAN 50 UNIT/0.5 ML ML SQ SCH ×2 (17:12→21:00)
[2018-11-02] MEDS ORDERED: ONDANSETRON 4 MG/2 ML VIAL IV PRN (17:12)
[2018-11-02] MEDS ORDERED: ALBUTEROL 2.5 MG/3 ML NEB SOL NEB PRN (17:12)
[2018-11-02] MEDS ORDERED: ACETAMINOPHEN 500 MG TAB PO PRN (17:12)
[2018-11-02] MEDS ORDERED: IPRATROPIUM BROM 0.5MG/2.5ML NEB PRN (17:12)
[2018-11-02] MEDS ORDERED: IBUPROFEN 400 MG TAB PO PRN (17:12)
[2018-11-02] MEDS ORDERED: TRAMADOL HCL 50 MG TAB PO PRN (17:12)
[2018-11-02] MEDS ORDERED: HYDRALAZINE HCL 20 MG/ML VIAL IV PRN (17:12)
[2018-11-02] MEDS ORDERED: BENZONATATE 100 MG CAP PO PRN (17:12)
[2018-11-02 18:08] LABS: CKMB Creatine Kinase MB < 1.0 ng/mL (0.3-3.6); Creatine Phosphokinase 85 U/L (39-308); Troponin I < 0.02 ng/mL (0.0-0.045)
--- NOTE | 2018-11-02 18:59 | RAD REPORT ---
EXAM DESCRIPTION: MRI - Brain W/Wo Cont - 11/02/2018 6:49 pm CLINICAL HISTORY: . Headache, drowsiness, altered consciousness. COMPARISON: MRA Head Wo Cont dated 11/02/2018; Carotid Artery Bilateral dated 11/02/2018; Ct Stroke Brai n Wo Cont dated 11/02/2018 TECHNIQUE: Multi-sequence, multiplanar MR imaging of the brain was performed with contrast. FINDINGS: No intracranial hemorrhage, hydrocephalus, or extra-axial fluid collection. No edema or sh ift of midline structures. No intracranial mass. DWI is negative for acute CVA. The midline structures are normally formed. Moderate polypoid mucosal thickening affects both maxilla ry antra and the ethmoid air cells. Post-contrast images show no abnormal enhancement to suggest tumor or infection. IMPRESSION: No acute or concerning intracranial abnormalities. Moderate paranasal sinus disease. No pathologic post-contrast enhancement suspected.
--- NOTE | 2018-11-02 19:01 | RAD REPORT ---
EXAM DESCRIPTION: MRI - MRA Head Wo Cont - 11/02/2018 6:50 pm CLINICAL HISTORY: Headaches, Dizziness, Blurry vision CVA COMPARISON: Ct Stroke Brain Wo Cont dated 11/02/2018 FINDINGS: 3D noncontrast [id number] MR angiography of the [place] was performed. No aneurysm, flow-limiting stenosis or vascular malformation is seen. Forward flow seen in left-sided dominant vertebral arteries. The visualized dural venous sinuses appear patent. IMPRESSION: No significant flow abnormality of the [place] is identified.
--- NOTE | 2018-11-02 19:07 | RAD REPORT ---
EXAM DESCRIPTION: US - CP - 11/02/2018 6:42 pm CLINICAL HISTORY: chest pain Headache, drowsiness, CVA symptomology. COMPARISON: No comparisons TECHNIQUE: Real-time sonographic evaluation of both carotid systems was performed. Doppler interroga tion was performed with waveform tracing bilaterally. FINDINGS: Normal high resistance waveforms are noted in both external carotid arteries. The common c arotid arteries and internal carotid arteries show normal low resistance waveforms. No significant plaque formation is seen. Peak systolic and end diastolic velocity values and the ICA/ CCA ratios are in the non-hemodynamically significant range. Antegrade flow seen in both vertebral arteries. IMPRESSION: No significant atherosclerotic changes noted. No evidence of a hemodynamically significant stenosis.
--- NOTE | 2018-11-02 19:07 | RAD REPORT ---
EXAM DESCRIPTION: MRI - MRA Neck W/Wo Cont - 11/02/2018 6:49 pm CLINICAL HISTORY: . Headache, drowsiness, CVA symptomology. COMPARISON: No comparisons FINDINGS: Contrast enhance 2D [id number] MR angiography of the neck vessels was performed. A left aortic arch is present with three-vessel branch pattern of the great arteries. Both common car otid arteries and subclavian arteries are unremarkable. Both internal carotid arteries are widely patent. There is no evidence of significant plaquing or mann nosis. Both vertebral arteries are patent and show forward flow. IMPRESSION: No significant flow abnormality of the neck vessels.
[2018-11-02] MEDS: NA CHLORIDE 0.9% 1,000 ML IV SCH (20:45)
[2018-11-02] MEDS ORDERED: ATORVASTATIN 40 MG TAB PO SCH (21:00)
[2018-11-02] MEDS: GUAIFENESIN 600 MG SA TAB PO SCH (22:54)
[2018-11-02] MEDS: OSELTAMIVIR 75 MG CAP PO SCH (22:54)
[2018-11-03 01:09] LABS: Urine Appearance TURBID; Urine Bilirubin NEGATIVE (NEG); Urine Blood NEGATIVE (NEG); Urine Color YELLOW; Urine Glucose NEGATIVE (NEG); Urine Protein NEGATIVE (NEG); Urine Specific Gravity >=1.030 (1.005-1.030); Urine Urobilinogen 0.2 mg/dL (0.2-1.0); Urine pH 5.5 (5.0-7.0)
[2018-11-03 01:10] LABS: Urine Microscopic Reflex ORDER UMIC
[2018-11-03 01:38] LABS: CKMB Creatine Kinase MB < 1.0 ng/mL (0.3-3.6); Creatine Phosphokinase 75 U/L (39-308); Troponin I < 0.02 ng/mL (0.0-0.045)
[2018-11-03 02:08] LABS: Urine Amorphous Sediment 1+ /HPF (NONE SEEN); Urine Bacteria <20 /HPF (NONE SEEN); Urine Culture Reflex Order NOT NEEDED; Urine Mucus HEAVY /HPF (NONE SEEN); Urine RBC NONE SEEN /HPF (NONE SEEN)
[2018-11-03 04:43] LABS: Absolute Lymphocytes (CBC) 4.2 K/uL (0.7-4.9); Absolute Monocytes 0.7 K/uL (0.1-1.3); Absolute Neutrophil 5.6 K/uL (1.8-8.0); Basophils % 0.5 % (0-1.3); Eosinophils % 1.9 % (0-4.4); Hematocrit 42.3 % (39.6-49.0); Lymphocytes % 38.8 % (15.3-44.8); MPV 9.1 fL (7.6-11.3); Monocytes % 6.8 % (3.3-12.3); RBC Red Blood Cell Count 5.13 M/uL (4.33-5.43)
[2018-11-03 05:02] LABS: BUN Blood Urea Nitrogen 10 mg/dL (7-18); Bicarbonate 30 mmol/L (21-32); Glucose Level 118 mg/dL (74-106); HDL Cholesterol 22 mg/dL (40-60); LDL Cholesterol, Calculated 113 (<130); Magnesium 2.1 mg/dL (1.8-2.4); Potassium 3.5 mmol/L (3.5-5.1); Sodium Level 139 mmol/L (136-145)
[2018-11-03] MEDS ORDERED: POTASSIUM CL SA 10 MEQ TAB PO ONE (05:30)
[2018-11-03] MEDS: NA CHLORIDE 0.9% 1,000 ML IV SCH (06:18)
[2018-11-03] MEDS: INSULIN -REGULAR HUMAN 50 UNIT/0.5 ML ML SQ SCH (07:30)
--- NOTE | 2018-11-03 08:35 | P.DS ---
Admission Date: 11/02/18 Discharge Date: 11/03/18 Primary Care Provider: Jeremy Salas NP Disposition: ROUTINE DISCHARGE Discharge Condition: GOOD Reason for Admission: ARROYO, Dizziness, CP Consultations: none Procedures: Brain MRI: FINDINGS: No intracranial hemorrhage, hydrocephalus, or extra-axial fluid collection. No edema or shift of midline structures. No intracranial mass. DWI is negative for acute CVA. The midline structures are normally formed. Moderate polypoid mucosal thickening affects both maxillary antra and the ethmoid air cells. Post-contrast images show no abnormal enhancement to suggest tumor or infection. IMPRESSION: No acute or concerning intracranial abnormalities. Moderate paranasal sinus disease. No pathologic post-contrast enhancement suspected. Neck MRA: FINDINGS: Contrast enhance 2D [id number] MR angiography of the neck vessels was performed. A left aortic arch is present with three-vessel branch pattern of the great arteries. Both common carotid arteries and subclavian arteries are unremarkable. Both internal carotid arteries are widely patent. There is no evidence of significant plaquing or stenosis. Both vertebral arteries are patent and show forward flow. IMPRESSION: No significant flow abnormality of the neck vessels. Brain MRA: FINDINGS: 3D noncontrast [id number] MR angiography of the [place] was performed. No aneurysm, flow-limiting stenosis or vascular malformation is seen. Forward flow seen in left-sided dominant vertebral arteries. The visualized dural venous sinuses appear patent. IMPRESSION: No significant flow abnormality of the [place] is identified. Carotid doppler: FINDINGS: Normal high resistance waveforms are noted in both external carotid arteries. The common carotid arteries and internal carotid arteries show normal low resistance waveforms. No significant plaque formation is seen. Peak systolic and end diastolic velocity values and the ICA/CCA ratios are in the non-hemodynamically significant range. Antegrade flow seen in both vertebral arteries. IMPRESSION: No significant atherosclerotic changes noted. No evidence of a hemodynamically significant stenosis. Medical Problem List: Headaches, dizziness with blurry vision and fatigue likely related to influenza B with dehydration Chest pain likely related to above along with likely atelectasis with poor inspiration and expiration Diabetes mellitus type 2 History of TIA Brief History of Present Illness: 42-year-old male presented to the emergency room with multiple complaints. This included headaches, dizziness and chest pain. Patient reports symptoms started about 1 week ago. Sick contacts included a girlfriend. Patient has been having increased fatigue, body aches. He did report some blurry vision as well. He came to the ER for further evaluation. In the ER patient evaluated. CBC unremarkable. CMP unremarkable. Cardiac enzymes unremarkable. CT head showed no acute changes. Chest x-ray showed underinflated lungs. Patient was positive for influenza B. Due to his symptoms the patient was admitted for observation. When I saw the patient the ER, he appeared comfortable. He did appear tired. Family at bedside. Patient reports a history of diabetes no longer taking medication. He does report a history of a TIA in the past. He had only takes aspirin 81 mg daily. He does not smoke, drink. Urine drug screen was negative. Hospital Course: Patient presented with multiple symptoms including: headaches, chest pain, dizziness, fatigue and blurry vision. Cardiac enzymes were normal. MRI brain, MRA brain and MRA neck within normal range. Lab unremarkable. Patient was found to have influenza B. Symptoms likely related to this along with dehydration and atelectasis. Patient received IV fluids. His condition improved. At discharge he is without any significant chest pain or shortness of breath. At discharge patient will continue with Tamiflu 75 mg 1 pill twice daily for 5 days. Patient will also be provided Pro air 2 puffs 3 times a day as needed for shortness of breath and Flonase 1 spray per nostril twice daily. Patient will continue with incentive spirometer. Patient may take Tylenol or ibuprofen as needed for fever or pain. Recommend to follow up with his PCP in 1 week to follow up this hospitalization. Patient has diabetes mellitus type 2. A1c 6.9. Patient will continue with a diet control plan. Recommend to recheck A1c in 3 months. This can be further monitored and evaluated by his PCP. Patient reports history of TIA. Workup unremarkable. Patient may continue with aspirin 81 mg daily and folic acid 1 mg daily. MRI brain, MRA brain, MRA neck, carotid Doppler polyp unremarkable. Patient may have underlying obstructive sleep apnea. Recommend to follow up with his PCP for outpatient sleep study to further address. Patient reports blurry vision. Will recommend that he follow up with ophthalmology as an outpatient to further assess. Vital Signs/Physical Exam: Temp Pulse Resp BP Pulse Ox 96.9 F 61 18 112/60 95 11/03/18 03:42 11/03/18 03:42 11/03/18 03:42 11/03/18 03:42 11/03/18 03:42 General: Alert, In no apparent distress, Oriented x3, Cooperative HEENT: Atraumatic, Mucous membr. moist/pink Neck: Supple, No Thyromegaly Respiratory: Clear to auscultation bilaterally, Normal air movement Cardiovascular: Normal pulses, Regular rate/rhythm Gastrointestinal: Normal bowel sounds, Soft and benign, Non-distended, No tenderness, No masses, No rebound, No guarding Musculoskeletal: No erythema, No tenderness, No warmth Integumentary: No tenderness/swelling, No erythema, No warmth, No cyanosis Neurological: Normal speech, Normal strength at 5/5 x4 extr, Normal tone, Normal affect Laboratory Data at Discharge: WBC 10.8 K/uL (4.3-10.9) 11/03/18 04:11 Hgb 14.2 g/dL (13.6-17.9) 11/03/18 04:11 Hct 42.3 % (39.6-49.0) 11/03/18 04:11 Plt Count 257 K/uL (152-406) 11/03/18 04:11 PT 12.4 SECONDS (9.5-12.5) 11/02/18 09:50 INR 1.05 11/02/18 09:50 APTT 31.8 SECONDS (24.3-36.9) 11/02/18 09:50 Sodium 139 mmol/L (136-145) 11/03/18 04:11 Potassium 3.5 mmol/L (3.5-5.1) 11/03/18 04:11 BUN 10 mg/dL (7-18) 11/03/18 04:11 Creatinine 0.63 mg/dL (0.55-1.3) 11/03/18 04:11 Glucose 118 mg/dL (74-106) H 11/03/18 04:11 Magnesium 2.1 mg/dL (1.8-2.4) 11/03/18 04:11 Total Bilirubin 0.5 mg/dL (0.2-1.0) 11/02/18 09:50 AST 17 U/L (15-37) 11/02/18 09:50 ALT 37 U/L (12-78) 11/02/18 09:50 Alkaline Phosphatase 79 U/L (45-117) 11/02/18 09:50 Troponin I < 0.02 ng/mL (0.0-0.045) 11/03/18 01:00 Triglycerides 162 mg/dL (<150) H 11/03/18 04:11 Cholesterol 167 mg/dL (<200) 11/03/18 04:11 HDL Cholesterol 22 mg/dL (40-60) L 11/03/18 04:11 Cholesterol/HDL Ratio 7.59 11/03/18 04:11 Lipase 116 U/L (73-393) 11/02/18 09:50 Home Medications: Albuterol Sulfate [Proair Hfa] 2 puff IH TID PRN #1 hfa.aer.ad 11/03/18 Aspirin [Aspirin EC 81 MG] 81 mg PO DAILY #90 tablet. 11/03/18 Fluticasone [Flonase 50mcg Nasal [place]] 1 sprays NS BID #1 btl 11/03/18 Folic Acid 1 mg PO DAILY #90 tablet 11/03/18 Oseltamivir [Tamiflu*] 75 mg PO BID #10 cap 11/03/18 New Medications: Albuterol Sulfate [Proair Hfa] 2 puff IH TID PRN #1 hfa.aer.ad PRN Reason: Shortness Of Breath Aspirin [Aspirin EC 81 MG] 81 mg PO DAILY #90 tablet. Fluticasone [Flonase 50mcg Nasal [place]] 1 sprays NS BID #1 btl Folic Acid 1 mg PO DAILY #90 tablet Oseltamivir [Tamiflu*] 75 mg PO BID #10 cap Patient Discharge Instructions: 1. Patient will need a follow up with his PCP in 1 week to follow up this hospitalization. 2. Patient presented with multiple symptoms including: headaches, chest pain, dizziness, fatigue and blurry vision. Cardiac enzymes were normal. MRI brain, MRA brain and MRA neck within normal range. Lab unremarkable. Patient was found to have influenza B. Symptoms likely related to this along with dehydration and atelectasis. Patient received IV fluids. His condition improved. At discharge he is without any significant chest pain or shortness of breath. At discharge patient will continue with Tamiflu 75 mg 1 pill twice daily for 5 days. Patient will also be provided Pro air 2 puffs 3 times a day as needed for shortness of breath and Flonase 1 spray per nostril twice daily. Patient will continue with incentive spirometer. Patient may take Tylenol or ibuprofen as needed for fever or pain. Recommend to follow up with his PCP in 1 week to follow up this hospitalization. 3. Patient has diabetes mellitus type 2. A1c 6.9. Patient will continue with a diet control plan. Recommend to recheck A1c in 3 months. This can be further monitored and evaluated by his PCP. 4. Patient reports history of TIA. Workup unremarkable. Patient may continue with aspirin 81 mg daily and folic acid 1 mg daily. MRI brain, MRA brain, MRA neck, carotid Doppler polyp unremarkable. 5. Patient may have underlying obstructive sleep apnea. Recommend to follow up with his PCP for outpatient sleep study to further address. 6. Patient reports blurry vision. Will recommend that he follow up with ophthalmology as an outpatient to further assess. 7. Patient may return to work on Friday. Diet: ADA Activity: Ad naseem Time spent managing pt's care (in minutes): 55
--- NOTE | 2018-11-03 08:38 | RAD REPORT ---
EXAM DESCRIPTION: Neftali Castro (2 Views)11/03/2018 6:53 am CLINICAL HISTORY: Cough COMPARISON: November 02, 2018 FINDINGS: The lungs appear clear of acute infiltrate. The heart is normal size IMPRESSION: No acute abnormalities displayed
[2018-11-03] MEDS ORDERED: ENOXAPARIN 40 MG/0.4 ML SQ SCH (09:00)
[2018-11-03] MEDS ORDERED: ASPIRIN EC 81 MG TAB PO SCH (09:00)
[2018-11-03] MEDS ORDERED: FOLIC ACID 1 MG TABLET PO SCH (09:00)
[2018-11-03] MEDS ORDERED: THIAMINE HCL 100 MG TABLET PO SCH (09:00)
[2018-11-03] MEDS: GUAIFENESIN 600 MG SA TAB PO SCH (09:32)
[2018-11-03] MEDS: OSELTAMIVIR 75 MG CAP PO SCH (09:34)
--- NOTE | 2018-11-10 11:00 | EKG ---
Test Date: 2018-11-02 Test Time: 10:03:20 Rail Flaw Detector Operator: RUBIN MEASUREMENT RESULTS: Intervals: Rate: 82 PA: 146 QRSD: 88 QT: 380 QTc: 443 [place]: P: 59 PA: 146 QRS: 30 T: 37 INTERPRETIVE STATEMENTS: Normal sinus rhythm with sinus arrhythmia Normal ECG Compared to ECG 05/23/2018 22:42:07 Ventricular premature complex(es) no longer present Electronically Signed On 11-02-18 11:59:07 CDT by Tejinder Pierce
== END 2018-11-03 11:40 | disposition home or self-care (01) ==
LOC: ER 09:43 → ERHOLD 14:15 → 2ND 19:47
PROVIDERS: ADMIT Family Medicine; ATTEND Family Medicine
DX: J11.1 Influenza due to unidentified influenza virus with other respiratory manifestations (principal); R51 Headache; R42 Dizziness and giddiness; H53.8 Other visual disturbances; R53.83 Other fatigue; R07.9 Chest pain, unspecified; E11.9 Type 2 diabetes mellitus without complications; Z86.73 Personal history of transient ischemic attack (TIA), and cerebral infarction without residual deficits; E86.0 Dehydration
CPT/HCPCS: 36415; 70450; 70544; 70549; 70553; 71045; 71046; 80048; 80061; 80076; 80307; 80320; 80329; 81003; 81015; 82550; 82553; 82805; 82962; 83036; 83605; 83690; 83735; 83880; 84145; 84439; 84443; 84484; 85025; 85610; 85730; 87040; 87804; 93005; 93880; 96365; 96367; 96368; 99285; A9577; G0378; J0696; J1650; J2405; J3411; J7030

== ENCOUNTER 2019-02-16 08:06 | Emergency (ER) | payer SELFPAY ==
[2019-02-16] MEDS ORDERED: HYDROMORPHONE HCL 1 MG/ML INJ ONE (09:51)
--- NOTE | 2019-02-16 11:04 | EDPHYS ---
Physician Documentation [facility] Name: Clayton Guzman Age: 43 yrs Sex: Male : 1975 Arrival Date: 02/16/2019 Time: 08:08 Bed 6 Private MD: ED Physician Kamron Shaffer HPI: 02/16 13:35 This 43 yrs old Male presents to ER via Wheelchair with complaints of Groin gs Pain - Hernia. 13:35 The patient presents with swelling, that is moderate, of the left inguinal area. Onset: gs The symptoms/episode began/occurred 1 week(s) ago, and became persistent. Modifying factors: the symptoms are aggravated by movement. Associated signs and symptoms: Pertinent negatives: vomiting. Severity of symptoms: At their worst the symptoms were moderate, in the emergency department the symptoms are unchanged. The patient has experienced similar episodes in the past, a few times. Historical: - Allergies: 08:18 No Known Allergies; sg - Home Meds: 08:21 Aspirin Oral [Active]; sg - PMHx: 08:21 None; sg - PSHx: 08:21 None; sg - Immunization history:: Adult Immunizations not up to date. - Social history:: Smoking status: Patient/guardian denies using tobacco. - Ebola Screening: : Patient negative for fever greater than or equal to 101.5 degrees Fahrenheit, and additional compatible Ebola Virus Disease symptoms Patient denies exposure to infectious person Patient denies travel to an Ebola-affected area in the 21 days before illness onset No symptoms or risks identified at this time. ROS: 13:35 All other systems are negative. gs Exam: 13:35 Head/Face: Normocephalic, atraumatic. Eyes: Pupils equal round and reactive to light, gs extra-ocular motions intact. Lids and lashes normal. Conjunctiva and sclera are non-icteric and not injected. Cornea within normal limits. Periorbital areas with no swelling, redness, or edema. ENT: Nares patent. No nasal discharge, no septal abnormalities noted. Tympanic membranes are normal and external auditory canals are clear. Oropharynx with no redness, swelling, or masses, exudates, or evidence of obstruction, uvula midline. Mucous membranes moist. Neck: Trachea midline, no thyromegaly or masses palpated, and no cervical lymphadenopathy. Supple, full range of motion without nuchal rigidity, or vertebral point tenderness. No Meningismus. Chest/axilla: Normal chest wall appearance and motion. Nontender with no deformity. No lesions are appreciated. Cardiovascular: Regular rate and rhythm with a normal S1 and S2. No gallops, murmurs, or rubs. Normal PMI, no JVD. No pulse deficits. Respiratory: Lungs have equal breath sounds bilaterally, clear to auscultation and percussion. No rales, rhonchi or wheezes noted. No increased work of breathing, no retractions or nasal flaring. Abdomen/GI: Soft, non-tender, with normal bowel sounds. No distension or tympany. No guarding or rebound. No evidence of tenderness throughout. Back: No spinal tenderness. No costovertebral tenderness. Full range of motion. Skin: Warm, dry with normal turgor. Normal color with no rashes, no lesions, and no evidence of cellulitis. MS/ Extremity: Pulses equal, no cyanosis. Neurovascular intact. Full, normal range of motion. Neuro: Awake and alert, GCS 15, oriented to person, place, time, and situation. Cranial nerves II-XII grossly intact. Motor strength 5/5 in all extremities. Sensory grossly intact. Cerebellar exam normal. Normal gait. 13:35 Constitutional: The patient appears alert, awake. 13:35 Abdomen/GI: Hernia: noted in the left inguinal area, tenderness, that is moderate, reducible after med medication. Vital Signs: 08:17 BP 153 / 90; Pulse 84; Resp 17 S; Pulse Ox 95% on R/A; Weight 100.7 kg; Height 5 ft. 8 sg in. (172.72 cm); Pain 10/10; 09:49 BP 122 / 60; Pulse 67; Resp 17; Pulse Ox 96% ; sv 08:17 Body Mass Index 33.75 (100.70 kg, 172.72 cm) MDM: 08:59 Patient medically screened. 13:35 Data reviewed: vital signs, nurses notes. Counseling: I had a detailed discussion with gs the patient and/or guardian regarding: the historical points, exam findings, and any diagnostic results supporting the discharge/admit diagnosis, the need for outpatient follow up, a general surgeon. Response to treatment: the patient's symptoms have markedly improved after treatment, the patient's symptoms have resolved after treatment, and as a result, I will discharge patient. Administered Medications: 09:30 Drug: Dilaudid 1 mg Route: IM; Site: right deltoid; sg 10:00 Follow up: Response: No adverse reaction; Pain is decreased sg Disposition: 02/16/19 11:03 Discharged to Home. Impression: Inguinal hernia. - Condition is Stable. - Discharge Instructions: Hernia, Adult, [id number]. - Prescriptions for Tylenol- Codeine #4 300-60 mg Oral Tablet - take 1 tablet by ORAL route every 6 hours As needed; 10 tablet. - Work release form, Medication Reconciliation Form, Thank You Letter, Antibiotic Education, Prescription Opioid Use form. - Follow up: Erich Bah MD; When: 1 - 2 days; Reason: Re-evaluation by your physician. Signatures: Lucio Meza RN RN sg Kamron Shaffer MD MD gs Corrections: (The following items were deleted from the chart) 11:15 11:03 02/16/2019 11:03 Discharged to Home. Impression: Inguinal hernia. Condition is sg Stable. Forms are Medication Reconciliation Form, Thank You Letter, Antibiotic Education, Prescription Opioid Use. Follow up: Erich Bah; When: 1 - 2 days; Reason: Re-evaluation by your physician. gs
--- NOTE | 2019-02-16 11:04 | ER ---
Nurse's Notes [facility] Name: Clayton Guzman Age: 43 yrs Sex: Male : 1975 Arrival Date: 02/16/2019 Time: 08:08 Bed 6 Private MD: Diagnosis: Inguinal hernia Presentation: 02/16 08:16 Presenting complaint: Patient states: Left sided groin lomeli and left sided abdominal sg pain that worsens with BM, pt reports he thinks he has hernia on that side, the pain has not been this bad before. Denies N/V/D/Fever, reports pain a 05/13. Transition of care: patient was not received from another setting of care. Onset of symptoms was February 16, 2019. Risk Assessment: Do you want to hurt yourself or someone else? Patient reports no desire to harm self or others. Initial Sepsis Screen: Does the patient meet any 2 criteria? No. Patient's initial sepsis screen is negative. Does the patient have a suspected source of infection? No. Patient's initial sepsis screen is negative. Care prior to arrival: None. 08:16 Method Of Arrival: Wheelchair sg 08:16 Acuity: KAREN 3 sg Historical: - Allergies: 08:18 No Known Allergies; sg - Home Meds: 08:21 Aspirin Oral [Active]; sg - PMHx: 08:21 None; sg - PSHx: 08:21 None; sg - Immunization history:: Adult Immunizations not up to date. - Social history:: Smoking status: Patient/guardian denies using tobacco. - Ebola Screening: : Patient negative for fever greater than or equal to 101.5 degrees Fahrenheit, and additional compatible Ebola Virus Disease symptoms Patient denies exposure to infectious person Patient denies travel to an Ebola-affected area in the 21 days before illness onset No symptoms or risks identified at this time. Screenin:20 Abuse screen: Denies threats or abuse. Denies injuries from another. Nutritional sg screening: No deficits noted. Tuberculosis screening: No symptoms or risk factors identified. Never had TB. Fall Risk None identified. Assessment: 08:20 General: Appears in no apparent distress. well groomed, well developed, well nourished, sg Behavior is calm, cooperative, appropriate for age. Pain: Complains of pain in suprapubic area and left femoral area Quality of pain is described as aching. Neuro: Level of Consciousness is awake, alert, obeys commands, Oriented to person, place, time, Speech is normal, Facial symmetry appears normal. Cardiovascular: Capillary refill is brisk in bilateral fingers Patient's skin is warm and dry. Respiratory: Airway is patent Respiratory effort is even, unlabored, Respiratory pattern is regular, symmetrical. GI: Abdomen is round non-distended, obese, Reports tolerance of fluids, tolerance of food. : Reports pain in left in suprapubic area lower quadrant(s) Denies burning with urination, incontinence, urinary frequency. EENT: No signs and/or symptoms were reported regarding the EENT system. Derm: Skin is pink, warm \T\ dry. Musculoskeletal: Circulation, motion, and sensation intact. Range of motion: intact in all extremities, Reports pain in groin while standing or ambulating. 09:45 Reassessment: Patient appears in no apparent distress at this time. pt repositioned to sg attempt increasing comfort and decreasing pain Patient states symptoms have not improved. Vital Signs: 08:17 BP 153 / 90; Pulse 84; Resp 17 S; Pulse Ox 95% on R/A; Weight 100.7 kg; Height 5 ft. 8 sg in. (172.72 cm); Pain 10/10; 09:49 BP 122 / 60; Pulse 67; Resp 17; Pulse Ox 96% ; sv 08:17 Body Mass Index 33.75 (100.70 kg, 172.72 cm) ED Course: 08:08 Patient arrived in ED. as 08:15 Lucio Meza RN is Primary Nurse. sg 08:17 Triage completed. sg 08:18 Arm band placed on. sg 08:43 Kamron Shaffer MD is Attending Physician. 11:03 Erich Bah MD is Referral Physician. Administered Medications: 09:30 Drug: Dilaudid 1 mg Route: IM; Site: right deltoid; sg 10:00 Follow up: Response: No adverse reaction; Pain is decreased Outcome: 11:03 Discharge ordered by . 11:15 Patient left the ED. Signatures: Cheyenne Ramirez RN RN Lucio Meza RN RN Cinthia Bah Gregory, MD MD
== END 2019-02-16 11:15 | disposition home or self-care (01) ==
LOC: ER 08:06
DX: K40.90 Unilateral inguinal hernia, without obstruction or gangrene, not specified as recurrent (principal); Z79.82 Long term (current) use of aspirin
CPT/HCPCS: 96372; 99282; J1170